=== PATIENT | female | born 1985 | race Hispanic/Latino ===

== ENCOUNTER 2022-02-17 07:24 | Day surgery (SDC) | payer OTHER ==
[2022-02-15 10:55] VITALS: BP_SYST 143; BP_SYST 195; BP_DIAS 80; BP_DIAS 89
[2022-02-15 11:13] LABS: BASOPHILS % (AUTO) 0.4 % (0.0-5.0); EOSINOPHILS % (AUTO) 1.3 % (0.0-8.0); HEMATOCRIT 40.6 % (36-48); LYMPHOCYTES % (AUTO) 34.7 % (21.0-51.0); MEAN CORPUSCULAR HGB CONC 32.5 g/dL (32.0-36.0); MONOCYTES % (AUTO) 8.6 % (3.0-13.0); NEUTROPHILS % (AUTO) 54.8 % (40.0-77.0); PLATELET COUNT (AUTO) 207 K/uL (130-400); RED BLOOD CELL COUNT(AUTO) 4.89 MIL/uL (4.00-5.50); RED CELL DISTRIBUTION WIDTH 14.5 % (11.0-15.5); WHITE BLOOD COUNT (AUTO) 4.7 K/uL (4.8-10.8)
[~2022-02-17] VITALS: Ht 160 cm; Wt 132.7 kg
[2022-02-17] VITALS (17 sets, daily range): BP systolic 123–168; BP diastolic 43–90
[~2022-02-17 07:24] MED LIST: LEVO100T4 PO; SEMA1PEN3 SQ; VITAD50000 PO
[2022-02-17] MEDS ORDERED: LACTATED RINGERS 1000ML 1,000 ML IV ONE (07:46)
[2022-02-17] MEDS ORDERED: MIDAZOLAM HCL 1 MG/ML 2ML VIAL ONE ×2 (09:42→09:44)
[2022-02-17] MEDS ORDERED: DEXAMETHASONE SOD PHOSPHATE 10MG/ML 1ML VIAL ONE (09:42)
[2022-02-17] MEDS ORDERED: PROPOFOL 10 MG/ML 20ML VIAL IV ONE (09:43)
[2022-02-17] MEDS ORDERED: FENTANYL CITRATE PF 50 MCG/1 ML 2ML VIAL ONE (09:43)
[2022-02-17] MEDS ORDERED: ONDANSETRON 4MG INJ ONE (09:43)
[2022-02-17] MEDS ORDERED: KETOROLAC 30MG VIAL (30MG/ML) ONE (09:56)
[2022-02-17] MEDS ORDERED: MEPERIDINE-PF 25 MG/ML SYG ONE ×2 (10:46→10:55)
== END 2022-02-17 12:40 | disposition home or self-care (01) ==
LOC: DAH 07:24
PROVIDERS: ATTEND Obstetrics & Gynecology
DX: N93.9 Abnormal uterine and vaginal bleeding, unspecified (principal); N81.5 Vaginal enterocele; N84.1 Polyp of cervix uteri; Z83.3 Family history of diabetes mellitus; Z82.49 Family history of ischemic heart disease and other diseases of the circulatory system; Z80.3 Family history of malignant neoplasm of breast; Z80.41 Family history of malignant neoplasm of ovary; Z98.890 Other specified postprocedural states; Z98.891 History of uterine scar from previous surgery
CPT/HCPCS: 84703; 85025; 87426; 36415; 58558; A6260; A4663; A4351; A4355; J7120; J3010; J1100; J2250 ×2; J2704; J2405; J1885; J2175 ×2; A4215; A4223; A4222; A4221